=== PATIENT | female | born 1980 | race Two or more races ===

== ENCOUNTER 2025-01-29 22:26 | Emergency (ER) | payer MEDICAID, OTHER ==
[~2025-01-29] VITALS: Ht 170.2 cm; Wt 73.6 kg
--- NOTE | 2025-01-29 23:54 | ECG ---
[facility] Test Date: 2025-01-29 Test Time: 23:51:57 Pat Name: CLINT KELLY Department: ED Room: Gender: F Unit Secretary: MOOSE : 1980 Requested By: MIGNON WATERS Order Number: [id number] Reading MD: Arden Aguero Measurements Intervals [place] Rate: 115 P: 81 MD: 177 QRS: 79 QRSD: 90 T: 58 QT: 309 QTc: 428 Interpretive Statements Sinus tachycardia Biatrial enlargement Electronically Signed On 01-30-2025 16:45:44 PDT by Arden Aguero Please click the below link to view image of tracing.
[2025-01-30 00:29] LABS: COVID19 ANTIGEN SOFIA FIA NEGATIVE (NEGATIVE)
--- NOTE | 2025-01-30 01:29 | DVH ---
EXAM: XY CHEST TWO VIEWS ROUTINE CLINICAL HISTORY: CHEST PAIN TECHNIQUE: Frontal and lateral views of the chest WID: COMPARISON: None FINDINGS: Lines and tubes: None Chest: The heart size and pulmonary vasculature is within normal limits. No pleural effusion, pneumothorax, or consolidation. The osseous structures are grossly intact. IMPRESSION: 1. No acute cardiopulmonary abnormality.
--- NOTE | 2025-01-30 01:38 | ED.PDOC ---
SOB-HPI HPI Comments PT CAME TO THE ER WITH CC OF FLU LIKE SYMPTOMS, PT REPORTS FEVER, ABDOMINAL PAIN , [place] WITH PRESSURE CHANGES, AND BACK PAIN. PT IS A&OX4 RR EVEN AND REGULAR NO DISTRESS NOTED AT THIS TIME. PT DENIES N/V/D CP SOB PATIENT STATES WAS RECENTLY SEEN AND DISCHARGED FROM HERE ADMITTED FOR SEVERAL DAYS FOR DVT PLACED ON ELIQUIS. Chief Complaint: Flu like Time Seen by MD: 22:52 Reviewed notes: Nurses Notes, Medications, Allergies Information Source: Patient Mode of Arrival: Ambulatory Past Medical History PAST MEDICAL HISTORY: Denies Surgical History: Denies all surgeries IT DESKTOP SUPPORT TECHNICIAN History: No Pertinent IT DESKTOP SUPPORT TECHNICIAN History Family History Family History: Reviewed,noncontributory to illness Social History Smoker: Non-Smoker Alcohol: Denies ETOH Use Drugs: Denies Drug Use All Other Systems: Reviewed and Negative (see hpi) Physical Exam General Appearance: No Apparent Distress, Normal HEENT: Normal ENT Inspection, Pharynx Normal, TMs Normal Neck: Full Range of Motion, Non-Tender, Normal, Normal Inspection Respiratory: Chest Non-Tender, Lungs Clear, No Accessory Muscle Use, No Respiratory Distress, Normal Breath Sounds Cardiovascular: No Edema, No JVD, No Murmur, No Gallop, Normal Peripheral Pulses, Regular Rate/Rhythm Breast Exam: Deferred Gastrointestinal: No Organomegaly, Non Tender, No Pulsatile Mass, Normal Bowel Sounds, Soft Genitalia: Deferred Pelvic: Deferred Rectal: Deferred Extremities: No calf tenderness, Normal capillary refill, Normal inspection, Normal range of motion, Non-tender, No pedal edema Musculoskeletal : Apperance: Normal Neurologic: Alert, director dental services II-XII nml as Tested, No Motor Deficits, Normal Affect, Normal Mood, No Sensory Deficits Cerebellar Function: Normal Reflexes: Normal Skin: Dry, Normal Color, Warm Lymphatic: No Adenopathy Was a procedure done? Was a procedure done?: No Differential Dx Differential Diagnosis: Pneumonia, URI X-Ray, Labs, Meds, VS Vital Signs Date Time Temp Pulse Resp B/P (MAP) Pulse Ox O2 Delivery O2 Flow Rate FiO2 01/30/25 04:02 98.3 108 18 110/56 (74) 96 98.3 01/30/25 02:44 101.7 126 18 123/65 (84) 97 101.7 01/30/25 02:32 102.0 01/29/25 23:51 115 01/29/25 22:31 98.4 129 20 133/72 99 98.4 Lab Test 01/30/25 02:45 01/30/25 02:03 01/30/25 01:47 01/29/25 23:28 Range/Units Lactic Acid Level 0.8 0.4-2.0 mmol/L White Blood Count 3.2 L 4.4-10.8 10^3/uL Red Blood Count 5.12 4.0-5.20 10^6/uL Hemoglobin 13.7 12.2-16.2 g/dL Hematocrit 40.4 36.0-46.0 % Mean Corpuscular Volume 78.8 L 80.0-100.0 fL Mean Corpuscular Hemoglobin 26.8 L 28.0-32.0 pg Mean Corpuscular Hemoglobin Concent 34.0 32.0-36.0 g/dL Red Cell Distribution Width 13.7 11.8-14.3 % Platelet Count 162 140-450 10^3/uL Mean Platelet Volume 8.4 6.9-10.8 fL Neutrophils (%) (Auto) 92.3 H 37.0-80.0 % Lymphocytes (%) (Auto) 4.2 L 10.0-50.0 % Monocytes (%) (Auto) 2.6 0.0-12.0 % Eosinophils (%) (Auto) 0.1 0.0-7.0 % Basophils (%) (Auto) 0.8 0.0-2.0 % Neutrophils # (Auto) 3.0 1.6-8.6 10 ^3/uL Lymphocytes # (Auto) 0.1 L 0.4-5.4 10 ^3/uL Monocytes # (Auto) 0.1 0-1.3 10 ^3/uL Eosinophils # (Auto) 0 0-0.8 10 ^3/uL Basophils # (Auto) 0 0-0.2 10 ^3/uL Nucleated Red Blood Cells 0.0 % Sodium Level 133 L 136-145 mmol/L Potassium Level 4.0 3.5-5.1 mmol/L Chloride Level 100 98-107 mmol/L Carbon Dioxide Level 26 20-31 mmol/L Anion Gap 7 5-15 Blood Urea Nitrogen 8 L 9-23 mg/dL Creatinine 0.83 0.550-1.02 mg/dL Glomerular Filtration Rate Calc 90 >90 mL/min BUN/Creatinine Ratio 9.6 L 10.0-20.0 Serum Glucose 114 H 74-106 mg/dL Calcium Level 9.0 8.7-10.4 mg/dL Total Bilirubin 0.6 0.2-1.0 mg/dL Aspartate Amino Transferase (AST) 72 H 13-40 U/L Alanine Aminotransferase (ALT) 83 H 7-40 U/L Alkaline Phosphatase 77 46-116 U/L Total Protein 8.1 5.7-8.2 g/dL Albumin 4.7 3.2-4.8 g/dL Urine Color Yellow Yellow Urine Clarity Clear Clear Urine pH 5.5 5.0-9.0 Urine Specific [place] 1.032 1.001-1.035 Urine Protein Trace H Negative Urine Ketones 1+ H Negative Urine Blood Trace H Negative /uL Urine Nitrite Negative Negative Urine Bilirubin Negative Negative Urine Urobilinogen 6 Negative mg/dL Urine Leukocyte Esterase Negative Negative /uL Urine RBC 22 0 - 4 /hpf Urine Microscopic WBC 1 0-5 /HPF Urine Squamous Epithelial Cells Few <5 /hpf Urine Bacteria None seen None Seen /hpf Urine Mucus Few None Seen Urine Yeast (Budding) Occasional None Seen /hpf Urine Glucose Normal Normal mg/dL Influenza Type A Antigen Negative Negative Influenza Type B Antigen Negative Negative SARS-CoV-2 Antigen (Rapid) Negative NEGATIVE Current Medications Medications (Trade) Dose Ordered Sig/Matt Route Start Time Stop Time Status Last Admin Sodium Chloride 2,000 ml @ 1,000 mls/hr Q2H ONCE IV 01/30/25 02:00 01/30/25 03:59 DC 01/30/25 02:32 Acetaminophen (Tylenol Tablet Or Capsule) 1,000 mg ONCE ONCE PO 01/30/25 02:00 01/30/25 02:01 DC 01/30/25 02:32 Azithromycin (Zithromax Tablet) 500 mg ONCE ONCE PO 01/30/25 05:00 01/30/25 05:01 DC 01/30/25 05:05 Time of 1ST Reevaluation: 23:15 Reevaluation 1ST: Unchanged Time of 2ND Reevaluation: 05:11 Reevaluation 2ND: Improved Patient Education/Counseling: Diagnosis, Treatment, Prognosis, Need For Follow Up Family Education/Counseling: Diagnosis, Treatment, Prognosis, Need For Follow Up SEPSIS Sepsis Screen Date sepsis recognized/suspect: Jan 29, 2025 Time Sepsis recognized/suspect: 2234 Recent Procedure: No On Antibiotic Therapy: No Respiratory Rate >20: No Heart Rate >90: No Temp<36 C (96.8 F) or >38.3 C: No SBP <90 or MAP <65 mmHG: No New Acute Mental Status Change: No Is the patient on CPAP, BIPAP,: No Physician Orders Chest Two Views Routine (01/29/25 23:20) Ct Ab Pel Wo Con-No Oral Or Iv (01/30/25 01:47) Blood Culture (01/30/25 02:40) Vital Signs Date Time Temp Pulse Resp B/P (MAP) Pulse Ox O2 Delivery O2 Flow Rate FiO2 01/30/25 04:02 98.3 108 18 110/56 (74) 96 98.3 01/30/25 02:44 101.7 126 18 123/65 (84) 97 101.7 01/30/25 02:32 102.0 01/29/25 23:51 115 01/29/25 22:31 98.4 129 20 133/72 99 98.4 Laboratory Tests Test 01/30/25 02:03 01/30/25 02:45 White Blood Count 3.2 10^3/uL (4.4-10.8) L Lactic Acid Level 0.8 mmol/L (0.4-2.0) Medications Medications Dose Ordered Sig/Matt Route Start Time Stop Time Status Last Admin Dose Admin Acetaminophen 1,000 mg ONCE ONCE PO 01/30/25 02:00 01/30/25 02:01 DC 01/30/25 02:32 Azithromycin 500 mg ONCE ONCE PO 01/30/25 05:00 01/30/25 05:01 DC 01/30/25 05:05 Sodium Chloride 2,000 ml @ 1,000 mls/hr Q2H ONCE IV 01/30/25 02:00 01/30/25 03:59 DC 01/30/25 02:32 Departure 1 Departure Time of Disposition: 05:11 Impression: Primary Impression: Atypical pneumonia Additional Impression: Bilateral nephrolithiasis Disposition: 01 HOME / SELF CARE / HOMELESS Condition: Stable e-Prescriptions Tamsulosin Hcl (Tamsulosin Hcl) 0.4 Mg Cap 1 CAP PO DAILY for 7 Days, #7 CAP Prov: MIGNON WATERS WAXER 01/30/25 Azithromycin (Azithromycin) 250 Mg Tab 250 MG PO DAILY MDD 500 for 5 Days, #6 TAB 0 Refills 2 TABLETS ORALLY ON DAY ONE, THEN 1 TABLET ORALLY DAILY FOR 4 DAYS Prov: MIGNON WATERS 01/30/25 Discharged With: Self Critical Care Note Critical Care Time?: No Stability Stability form required: MIGNON Sanchez Jan 30, 2025 01:38
[2025-01-30 02:09] LABS: Hemoglobin 13.7 g/dL (12.2-16.2); Mean Corpuscular Volume 78.8 fL (80.0-100.0)
[2025-01-30 02:11] LABS: Hematocrit 40.4 % (36.0-46.0); Mean Corpuscular Hemoglobin 26.8 pg (28.0-32.0); Nucleated Red Blood Cells % 0.0 %
[2025-01-30 02:27] LABS: Albumin 4.7 g/dL (3.2-4.8); Alkaline Phosphatase 77 U/L (46-116); Anion Gap 7 (5-15); BUN/Creatinine Ratio 9.6 (10.0-20.0); Blood Urea Nitrogen 8 mg/dL (9-23); Calcium 9.0 mg/dL (8.7-10.4); Carbon Dioxide 26 mmol/L (20-31); Chloride 100 mmol/L (98-107); Glucose 114 mg/dL (74-106); Potassium 4.0 mmol/L (3.5-5.1); Sodium 133 mmol/L (136-145); Total Protein 8.1 g/dL (5.7-8.2)
[2025-01-30 02:28] LABS: Alanine Aminotransferase 83 U/L (7-40); Bilirubin, Total 0.6 mg/dL (0.2-1.0)
[2025-01-30] MEDS: ACETAMINOPHEN 500 MG TAB or CAP PO ONE (02:32)
[2025-01-30] MEDS: SODIUM CHLORIDE 0.9% 2,000 ML IV ONE (02:32)
[2025-01-30 03:09] LABS: Urine Budding Yeast OCCASIONAL /hpf (None Seen); Urine Protein, UAD TRACE (Negative)
--- NOTE | 2025-01-30 03:40 | DVH ---
Exam: CT CT AB PEL WO CON-NO ORAL OR IV History: abd pain Comparison Study: None Technique: Multidetector spiral CT of the abdomen was performed from lung bases to pubic symphysis. I maging was performed without IV contrast. Axial, coronal and sagittal multiplanar reformats were obta ined from the axial data set by the technologist. Radiation Dose : 1. Abdomen/Pelvis: CTDIvol 6.45 mGy, DLP 389.77 mGy*cm. Findings: Evaluation of solid organs is limited due to lack of intravenous contrast use. Lung Bases: No acute or significant lung base finding. Normal heart size. No pleural or pericardial effusion. Liver: The liver is normal in size. No focal lesions. Gallbladder and Biliary Tree: Unremarkable Spleen: Unremarkable Pancreas: The pancreas is grossly normal in appearance. Adrenal Glands: Unremarkable Kidneys: Punctate nonobstructing bilateral pelvocaliceal calculi measure up to 2 mm in diameter. Kidn eys are otherwise grossly normal without evidence of hydronephrosis. Bladder: Grossly unremarkable for degree of distention. Bowel: The stomach is grossly normal in appearance. Small bowel and colon are normal in caliber and d istribution. The appendix is normal. Ascites: Absent Lymphadenopathy: No mesenteric, retroperitoneal or periportal lymphadenopathy. Abdominal Wall and Mesentery: Unremarkable. Vasculature: The visualized abdominal aorta is normal in size and caliber. Atherosclerotic vascular c alcifications. Evaluation of abdominal and pelvic vessels is limited due to lack of intravenous contr ast. Pelvic Organs: Unremarkable Musculoskeletal: No aggressive focal bony lesions, acute fractures or dislocation. IMPRESSION: 1. No acute abdominal or pelvic findings. 2. Nonobstructive bilateral nephrolithiasis. Radiation optimization: All CT scans at this facility use at least one of these dose optimization stephanie hniques: automated exposure control mA and/or kV adjustment per patient size (includes targeted exam s where dose is matched to clinical indication) or iterative reconstruction.
[2025-01-30 04:02] VITALS: BP 110/56; PULSE 108; RESP 18; TEMP 98.3; O2SAT 96
[2025-01-30] MEDS ORDERED: AZIT-43 PO (04:08)
[2025-01-30] MEDS ORDERED: TAMS0.4C39 PO (04:10)
[2025-01-30] MEDS: AZITHROMYCIN 250 MG TAB PO ONE (05:05)
== END 2025-01-30 05:24 | disposition home or self-care (01) ==
LOC: ER 22:26
DX: J18.9 Pneumonia, unspecified organism (principal); N20.0 Calculus of kidney; Z20.822 Contact with and (suspected) exposure to COVID-19; Z79.01 Long term (current) use of anticoagulants
CPT/HCPCS: 36415; 71046; 74176; 80053; 81001; 83605; 85025; 87040; 87426; 87804; 93005; 96360; 96361; 99285; J7030

== ENCOUNTER 2025-02-01 17:47 | Emergency (ER) | payer MEDICAID ==
[~2025-02-01] VITALS: Ht 170.2 cm; Wt 74.3 kg
[~2025-02-01 17:47] MED LIST: AZIT-43 PO; TAMS0.4C39 PO
[2025-02-01 17:51] VITALS: BP 103/67; PULSE 120; RESP 20; TEMP 99.2; O2SAT 98
== END 2025-02-01 17:57 | disposition left against medical advice (07) ==
LOC: ER 17:47
DX: R51.9 Headache, unspecified (principal); Z53.21 Procedure and treatment not carried out due to patient leaving prior to being seen by health care provider